=== PATIENT | female | born 1975 | race African-American/Black ===

== ENCOUNTER 2022-02-07 10:45 | Emergency (ER) | payer OTHER ==
[~2022-02-07] VITALS: Ht 160 cm; Wt 75.3 kg
[2022-02-07 10:55] VITALS: BP 169/89
--- NOTE | 2022-02-07 11:02 | NUR ---
PT AMBULATED TO BATHROOM WITH STEADY GAIT
--- NOTE | 2022-02-07 11:18 | NUR ---
46 Y/O FEMALE C/O DIZZINESS, N/V X1DAY. PT REPORTS SHE SUDDENLY FELT DIZZY, NAUSEA AND HAD EPISODES OF V WHERE SHE COULD NOT KEEP HER FOOD DOWN. DENIES PAIN, DIARRHEA. AOX4, ABLE TO TALK IN COMPLETE SENTENCES. PT DENIES VOMITING TODAY. RESPIRATIONS EVEN AND UNLABORED. NKA PMH: GESTATIONAL DIABETES FOR 1ST CHILD
[2022-02-07] MEDS ORDERED: NACL 0.9% 1,000 ML IV ONE (11:20)
[2022-02-07 11:58] LABS: BASOPHILS % (AUTO) 0.1 % (0.0-2.0); HEMATOCRIT 34.7 % (36-48); HEMOGLOBIN 10.7 g/dL (12.0-16.0); LYMPHOCYTES # (AUTO) 1.2 K/uL (2.5-16.5); MEAN CORPUSCULAR HEMOGLOBIN 21 pg (27-31); MEAN CORPUSCULAR HGB CONC 31 g/dL (33-37); MEAN CORPUSCULAR VOLUME 69.2 fL (80-94); MONOCYTES # (AUTO) 0.3 K/uL (0.8-1.0); MONOCYTES % (AUTO) 3.7 % (1.7-9.3); NEUTROPHILS # (AUTO) 6.5 K/uL (1.8-7.7); NEUTROPHILS % (AUTO) 81.2 % (42.2-75.2); PLATELET COUNT (AUTO) 273 K/uL (140-450); RED BLOOD CELL COUNT(AUTO) 5.01 MIL/uL (4.20-5.40); RED CELL DISTRIBUTION WIDTH 18.1 % (11.6-13.7)
[2022-02-07 12:15] LABS: ANION GAP 13.2 (8-16); CARBON DIOXIDE 30.4 mmol/L (21-32); CREATININE 0.9 mg/dL (0.6-1.3); POTASSIUM 3.6 mmol/L (3.5-5.1); TOTAL BILIRUBIN 0.4 mg/dL (0.0-1.0)
--- NOTE | 2022-02-07 12:21 | NUR ---
PT AMBULATED TO BATHROOM WITH STEADY GAIT
[2022-02-07 13:17] VITALS: BP 152/74
--- NOTE | 2022-02-07 13:17 | NUR ---
Patient discharged with v/s stable. Written and verbal after care instructions ABOUT DIZZINESS given and explained. Patient verbalized understanding. Ambulatory with steady gait. All questions addressed prior to discharge. Advised to follow up with PMD.
== END 2022-02-07 13:17 | disposition home or self-care (01) ==
LOC: MED 10:45
DX: R42 Dizziness and giddiness (principal); R11.2 Nausea with vomiting, unspecified; R73.9 Hyperglycemia, unspecified
CPT/HCPCS: 36415; 80053; 81002; 81025; 84484; 85025; 93005; 99284; J7030

== ENCOUNTER 2023-07-03 21:30 | Emergency (ER) | payer OTHER ==
[~2023-07-03] VITALS: Ht 157.5 cm; Wt 70.8 kg
[2023-07-03 22:20] VITALS: BP 146/90; PULSE 98; RESP 18; TEMP 97.6; O2SAT 100
[2023-07-04 00:14] LABS: BASOPHILS % (AUTO) 0.8 % (0.0-2.0); EOSINOPHILS # (AUTO) 0.3 K/uL (0-0.4); HEMATOCRIT 28.8 % (36-48); LYMPHOCYTES # (AUTO) 2.3 K/uL (2.5-16.5); LYMPHOCYTES % (AUTO) 42.6 % (20.5-51.1); MEAN CORPUSCULAR HEMOGLOBIN 20 pg (27-31); MEAN CORPUSCULAR HGB CONC 31 g/dL (33-37); MEAN CORPUSCULAR VOLUME 63.5 fL (80-94); MONOCYTES # (AUTO) 0.6 K/uL (0.8-1.0); MONOCYTES % (AUTO) 11.5 % (1.7-9.3); NEUTROPHILS # (AUTO) 2.2 K/uL (1.8-7.7); NEUTROPHILS % (AUTO) 39.1 % (42.2-75.2); PLATELET COUNT (AUTO) 256 K/uL (140-450); RED BLOOD CELL COUNT(AUTO) 4.53 MIL/uL (4.20-5.40); RED CELL DISTRIBUTION WIDTH 21.2 % (11.6-13.7); WHITE BLOOD COUNT (AUTO) 5.5 K/uL (4.8-10.8)
[2023-07-04 00:39] LABS: ANION GAP 9.6 (8-16); CALCIUM 8.3 mg/dL (8.5-10.1); CARBON DIOXIDE 31.5 mmol/L (21-32); CREATININE 0.8 mg/dL (0.6-1.3); POTASSIUM 4.1 mmol/L (3.5-5.1)
[2023-07-04 00:44] LABS: ALBUMIN 3.2 g/dL (3.4-5.0); BILIRUBIN,DIRECT 0.1 mg/dL (0.0-0.3); TOTAL BILIRUBIN 0.3 mg/dL (0.0-1.0); TOTAL PROTEIN, SERUM 7.6 g/dL (6.4-8.2)
[2023-07-04 00:46] LABS: ANISOCYTOSIS 1+; HYPOCHROMASIA 2+; OVALOCYTES 1+; POIKILOCYTOSIS 2+; TEAR DROP CELLS 1+
[2023-07-04 00:47] LABS: HELMET CELLS 2+
[2023-07-04] MEDS ORDERED: HYDR-2853 PO (01:18)
[2023-07-04 01:20] VITALS: BP 146/90; PULSE 98; RESP 18; TEMP 97.6; O2SAT 100
== END 2023-07-04 01:20 | disposition home or self-care (01) ==
LOC: MED 21:30
DX: I10 Essential (primary) hypertension (principal); I63.9 Cerebral infarction, unspecified; E11.9 Type 2 diabetes mellitus without complications; Z79.899 Other long term (current) drug therapy
CPT/HCPCS: 36415; 70450; 71045; 80048; 80076; 83880; 85025; 93005; 99285